=== PATIENT | female | born 1995 | race Caucasian/White ===

== ENCOUNTER 2022-04-27 21:23 | Emergency (ER) | payer OTHER ==
[~2022-04-27] VITALS: Ht 177.8 cm; Wt 95.3 kg
[2022-04-27 22:22] VITALS: BP 103/75
--- NOTE | 2022-04-27 22:32 | NUR ---
PATIENT SENT TO LOBBY
--- NOTE | 2022-04-27 22:37 | NUR ---
SWABBED AND PLACED IN LOBBY
[2022-04-27] MEDS ORDERED: IBUP-2213 PO (23:58)
[2022-04-27] MEDS ORDERED: BENZ200C4 PO (23:58)
[2022-04-27] MEDS ORDERED: AMOX500C25 PO (23:58)
[2022-04-28 00:03] VITALS: BP 103/75
--- NOTE | 2022-04-28 00:03 | NUR ---
Patient discharged with v/s stable. Written and verbal after care instructions given and explained. Patient alert, oriented and verbalized understanding of instructions. Ambulatory with steady gait. All questions addressed prior to discharge. ID band removed. Patient advised to follow up with PMD. Rx of AMOXICILLIN, BENZONATATE, IBUPROFEN given. Patient educated on indication of medication including possible reaction and side effects. Opportunity to ask questions provided and answered.
== END 2022-04-28 00:03 | disposition home or self-care (01) ==
LOC: MED 21:23
DX: J02.9 Acute pharyngitis, unspecified (principal); Z20.822 Contact with and (suspected) exposure to COVID-19; Z79.899 Other long term (current) drug therapy
CPT/HCPCS: 87081; 99283